=== PATIENT | male | born 1950 | race Caucasian/White ===

== ENCOUNTER 2017-03-14 08:00 | Outpatient (RCR) | payer MEDICARE, OTHER, SELFPAY ==
[2017-02-25 01:28] VITALS: BP 116/67; PULSE 74; RESP 16; TEMP 36.3; BMI 24.4
[2017-02-27 08:15] VITALS: BP 129/75; PULSE 73; RESP 16; TEMP 36.5; BMI 24.4
--- NOTE | 2017-02-27 12:05 | PCM.WC.PN ---
(1) Wound, surgical, nonhealing Status: Acute Current Visit: No Qualifiers: Code(s): T81.89XA - Other complications of procedures, not elsewhere classified, initial encounter (2) Anticoagulant long-term use Status: Chronic Current Visit: No Code(s): Z79.01 - long term (current) use of anticoagulants Type of Wound Date of Service: 02/27/17 Chief Complaint: Follow-up right chest wound open from drain site nonhealing. History of Wound: Mr. Moreira is a 66-year-old who returns to the wound center for right chest wound status post chest tube placement and tube removal. He recently had surgery at the [facility] on the 07 of January due to poor wound healing and per patient he had debridement and suture removal. He is here today for chronic wound care management. He has no active complaints at this time. Reports minimal drainage from the wound site and denies any foul-smelling discharge. He feels well otherwise denies chills, fever, nausea, vomiting or otherwise feeling of well. He is currently on coumadin. Progress of Wound: Improving. No new complaints. - Physical Exam Vital Signs Temp Pulse Resp BP 97.7 F L 73 16 129/75 H 02/27/17 08:15 02/27/17 08:15 02/27/17 08:15 02/27/17 08:15 General: Alert, Oriented x3, Cooperative, No apparent distress HEENT: Atraumatic, Normocephalic Oral: Moist Mucosa Neck: Supple, No JVD Lungs: Normal air movement Cardiovascular: Regular rate Extremities: No cyanosis Wound Measurements and Assessment - Nurse 1 - General Ulcer Measurement Start: 02/27/17 08:15 Freq: Status: Active Protocol: Activity Type Activity Date Activity User E-Sign Co-Sign Detail Recorded Client Recorded Date Recorded By Document 02/27/17 08:15 MW [id number] 02/27/17 08:24 MW 02/27/17 08:15 Wound Center Nurse 1 [Ulcer Assessment Protocol: PRASANNA.WD.LOC] #2- RT SIDE CHEST (PREV CHEST TUBE SITE) -Combined with other wound No -Current Size (cm) - Length 0.2 -Current Size (cm) - Width 1.1 -Current Size (cm) - Depth 0.2 -Total Square Cm 0.22 -Photo Taken Yes -Epithelialization Small 1-33% -Tunneling No -Undermining/Tunneling No -Circular Undermining No -Exudate Amt Small (1-33%) -Exudate Type Serosanguineous -Wound Margin Distinct, Outline Attached -Granulation Amt Medium (34-66%) -Granulation Quality [place] -Slough/Fibrin Yes -Necrosis Amt Small (1-33%) -Necrotic Tissue Type Adherent Slough -Structure Exposed N/A -Texture (Brinda-wound Skin Appearance) Assessed Scarring -Moisture (Brinda-wound Skin Appearance No Abnormality ) Assessed -Color (Brinda-wound Skin Appearance) No Abnormality Assessed -Temperature (Brinda-wound Skin No Abnormality Appearance) (Pt Warm) -Tenderness on Palpation (Brinda-wound No Skin Appearance) -Ulcer Cleansing Rinsed/ Irrigated with Saline -Foul Odor after Cleansing No -Anesthetic Used 5% Lidocaine Gel [Edema Assessment] -Lower Limb Edema Present No WC - Nurse 2 - General Ulcer CM Notes Start: 02/27/17 08:15 Freq: Status: Active Protocol: Activity Type Activity Date Activity User E-Sign Co-Sign Detail Recorded Client Recorded Date Recorded By Document 02/27/17 09:11 DV [id number] 02/27/17 09:15 DV 02/27/17 09:11 Wound Center Nurse 2 [Procedure/Treatment] #2- RT SIDE CHEST (PREV CHEST TUBE SITE) -Time 09:14 -Correct Patient Yes -Correct Side, Site, Position Yes -Correct Procedure Yes -Procedure Performed Yes -Type of Procedure Debridement -Clinical Debridement Subcutaneous -Post Debridement Size (cm) - Length 0.6 -Post Debridement Size (cm) - Width 1.5 -Post Debridement Size (cm) - Depth 0.3 -Total Square Cm 0.90 -Wound/Ulcer Outcome Not Healed -Ulcer Cleansing Rinsed/ Irrigated with Saline -Foul Odor after Cleansing No -Bioengineered Tissue No -Cetacaine [place] No -Bleeding Controlled with Pressure -Treatment Response Procedure Tolerated Well [See Physician Procedure note for Specifics] Pain Scale: 0-10 Numeric [Pain] -Is Patient Pain Free? Yes Musculoskeletal: No Muscle Wasting Neurological: Cranial nerves II-XII grossly intact Debridement Note Post-Debridement Measurements/Treatment WC - Nurse 2 - General Ulcer CM Notes Start: 02/27/17 08:15 Freq: Status: Active Protocol: Activity Type Activity Date Activity User E-Sign Co-Sign Detail Recorded Client Recorded Date Recorded By Document 02/27/17 09:11 DV [id number] 02/27/17 09:15 DV 02/27/17 09:11 Wound Center Nurse 2 #2- RT SIDE CHEST (PREV CHEST TUBE SITE) -Time 09:14 -Correct Patient Yes -Correct Side, Site, Position Yes -Correct Procedure Yes -Procedure Performed Yes -Type of Procedure Debridement -Clinical Debridement Subcutaneous -Post Debridement Size (cm) - Length 0.6 -Post Debridement Size (cm) - Width 1.5 -Post Debridement Size (cm) - Depth 0.3 -Total Square Cm 0.90 -Wound/Ulcer Outcome Not Healed -Ulcer Cleansing Rinsed/ Irrigated with Saline -Foul Odor after Cleansing No -Bioengineered Tissue No -Cetacaine [place] No -Bleeding Controlled with Pressure -Treatment Response Procedure Tolerated Well Pain Scale: 0-10 Numeric Is Patient Pain Free? Yes Type of Debridement: Excisional debridement Anesthesia Used: 5% Lidocaine Gel Depth: in the subcutaneous layer Percentage of wound debrided: 100 Instrument Used: 5mm curette Tissue Removed: Slough Amount of bleeding with debridement: Mild Bleeding Controlled with: Compression and gauze Patient tolerated procedure well Assessment/Plan Assessment: Nonhealing surgical wound right chest status post recent surgery and suture removal. Coumadin therapy Plan: Consistent reduction in wound size. No hyper granulation today. Will DC VAC. Continue Aquacel dressing/packing of wound with Adaptic over top. Continue protein rich diet. Follow up in 1 week. This note was generated with [employer] software. It may contain incorrect words, spelling, and punctuation that were not noted in checking the note before signing.
--- NOTE | 2017-02-27 12:11 | PN.PCM_ITS ---
(1) Wound, surgical, nonhealing Status: Acute Current Visit: No Qualifiers: Code(s): T81.89XA - Other complications of procedures, not elsewhere classified , initial encounter (2) Anticoagulant long-term use Status: Chronic Current Visit: No Code(s): Z79.01 - predatory animal exterminator (current) use of anticoagulants Type of Wound Date of Service: 02/27/17 Chief Complaint: Follow-up right chest wound open from drain site nonhealing. History of Wound: Mr. Moreira is a 66-year-old who returns to the wound center for right chest wound status post chest tube placement and tube removal. He recently had surgery at the [facility] on the 07 of January due to poor wound healing and per patient he had debridement and suture removal. He is here today for chronic wound care management. He has no active complaints at this time. Reports minimal drainage from the wound site and denies any foul-smelling discharge. He feels well otherwise denies chills, fever, nausea, vomiting or otherwise feeling of well. He is currently on coumadin. Progress of Wound: Improving. No new complaints. - Physical Exam Vital Signs Temp Pulse Resp BP 97.7 F L 73 16 129/75 H 02/27/17 08:15 02/27/17 08:15 02/27/17 08:15 02/27/17 08:15 General: Alert, Oriented x3, Cooperative, No apparent distress HEENT: Atraumatic, Normocephalic Oral: Moist Mucosa Neck: Supple, No JVD Lungs: Normal air movement Cardiovascular: Regular rate Extremities: No cyanosis Wound Measurements and Assessment - Nurse 1 - General Ulcer Measurement Start: 02/27/17 08:15 Freq: Status: Active Protocol: Activity Type Activity Date Activity User E-Sign Co-Sign Detail Recorded Client Recorded Date Recorded By Document 02/27/17 08:15 MW [id number] 02/27/17 08:24 MW 02/27/17 08:15 Wound Center Nurse 1 [Ulcer Assessment Protocol: PRASANNA.WD.LOC] #2- RT SIDE CHEST (PREV CHEST TUBE SITE) -Combined with other wound No -Current Size (cm) - Length 0.2 -Current Size (cm) - Width 1.1 -Current Size (cm) - Depth 0.2 -Total Square Cm 0.22 -Photo Taken Yes -Epithelialization Small 1-33% -Tunneling No -Undermining/Tunneling No -Circular Undermining No -Exudate Amt Small (1-33%) -Exudate Type Serosanguineous -Wound Margin Distinct, Outline Attached -Granulation Amt Medium (34-66%) -Granulation Quality [place] -Slough/Fibrin Yes -Necrosis Amt Small (1-33%) -Necrotic Tissue Type Adherent Slough -Structure Exposed N/A -Texture (Brinda-wound Skin Appearance) Assessed Scarring -Moisture (Brinda-wound Skin Appearance No Abnormality ) Assessed -Color (Brinda-wound Skin Appearance) No Abnormality Assessed -Temperature (Brinda-wound Skin No Abnormality Appearance) (Pt Warm) -Tenderness on Palpation (Brinda-wound No Skin Appearance) -Ulcer Cleansing Rinsed/ Irrigated with Saline -Foul Odor after Cleansing No -Anesthetic Used 5% Lidocaine Gel [Edema Assessment] -Lower Limb Edema Present No WC - Nurse 2 - General Ulcer CM Notes Start: 02/27/17 08:15 Freq: Status: Active Protocol: Activity Type Activity Date Activity User E-Sign Co-Sign Detail Recorded Client Recorded Date Recorded By Document 02/27/17 09:11 DV [id number] 02/27/17 09:15 DV 02/27/17 09:11 Wound Center Nurse 2 [Procedure/Treatment] #2- RT SIDE CHEST (PREV CHEST TUBE SITE) -Time 09:14 -Correct Patient Yes -Correct Side, Site, Position Yes -Correct Procedure Yes -Procedure Performed Yes -Type of Procedure Debridement -Clinical Debridement Subcutaneous -Post Debridement Size (cm) - Length 0.6 -Post Debridement Size (cm) - Width 1.5 -Post Debridement Size (cm) - Depth 0.3 -Total Square Cm 0.90 -Wound/Ulcer Outcome Not Healed -Ulcer Cleansing Rinsed/ Irrigated with Saline -Foul Odor after Cleansing No -Bioengineered Tissue No -Cetacaine [place] No -Bleeding Controlled with Pressure -Treatment Response Procedure Tolerated Well [See Physician Procedure note for Specifics] Pain Scale: 0-10 Numeric [Pain] -Is Patient Pain Free? Yes Musculoskeletal: No Muscle Wasting Neurological: Cranial nerves II-XII grossly intact Debridement Note Post-Debridement Measurements/Treatment WC - Nurse 2 - General Ulcer CM Notes Start: 02/27/17 08:15 Freq: Status: Active Protocol: Activity Type Activity Date Activity User E-Sign Co-Sign Detail Recorded Client Recorded Date Recorded By Document 02/27/17 09:11 DV [id number] 02/27/17 09:15 DV 02/27/17 09:11 Wound Center Nurse 2 #2- RT SIDE CHEST (PREV CHEST TUBE SITE) -Time 09:14 -Correct Patient Yes -Correct Side, Site, Position Yes -Correct Procedure Yes -Procedure Performed Yes -Type of Procedure Debridement -Clinical Debridement Subcutaneous -Post Debridement Size (cm) - Length 0.6 -Post Debridement Size (cm) - Width 1.5 -Post Debridement Size (cm) - Depth 0.3 -Total Square Cm 0.90 -Wound/Ulcer Outcome Not Healed -Ulcer Cleansing Rinsed/ Irrigated with Saline -Foul Odor after Cleansing No -Bioengineered Tissue No -Cetacaine [place] No -Bleeding Controlled with Pressure -Treatment Response Procedure Tolerated Well Pain Scale: 0-10 Numeric Is Patient Pain Free? Yes Type of Debridement: Excisional debridement Anesthesia Used: 5% Lidocaine Gel Depth: in the subcutaneous layer Percentage of wound debrided: 100 Instrument Used: 5mm curette Tissue Removed: Slough Amount of bleeding with debridement: Mild Bleeding Controlled with: Compression and gauze Patient tolerated procedure well Assessment/Plan Assessment: Nonhealing surgical wound right chest status post recent surgery and suture removal. Coumadin therapy Plan: Consistent reduction in wound size. No hyper granulation today. Will DC VAC. Continue Aquacel dressing/packing of wound with Adaptic over top. Continue protein rich diet. Follow up in 1 week. This note was generated with [employer] software. It may contain incorrect words, spelling, and punctuation that were not noted in checking the note before signing.
[2017-03-06 08:23] VITALS: BP 104/67; PULSE 68; RESP 18; TEMP 37.1; BMI 24.4
--- NOTE | 2017-03-06 08:53 | PN.PCM_ITS ---
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 History of Wound: Mr. Moreira is a 66-year-old who returns to the wound center for right chest wound status post chest tube placement and tube removal. He recently had surgery at the [facility] on the 07 of January due to poor wound healing and per patient he had debridement and suture removal. He is here today for chronic wound care management. He has no active complaints at this time. Reports minimal drainage from the wound site and denies any foul-smelling discharge. He feels well otherwise denies chills, fever, nausea, vomiting or otherwise feeling of well. He is currently on coumadin. Progress of Wound: Improving. No new complaints. - Physical Exam Vital Signs Temp Pulse Resp BP 98.8 F 68 18 104/67 03/06/17 08:23 03/06/17 08:23 03/06/17 08:23 03/06/17 08:23 General: Alert, Oriented x3, Cooperative, No apparent distress HEENT: Atraumatic, Normocephalic Oral: Moist Mucosa Neck: Supple Lungs: Normal air movement Cardiovascular: Regular rate Extremities: No cyanosis Wound Measurements and Assessment PRASANNA - Nurse 1 - General Ulcer Measurement Start: 02/27/17 08:15 Freq: Status: Active Protocol: Activity Type Activity Date Activity User E-Sign Co-Sign Detail Recorded Client Recorded Date Recorded By Document 03/06/17 08:23 RB [id number] 03/06/17 08:27 RB 03/06/17 08:23 Wound Center Nurse 1 [Ulcer Assessment Protocol: PRASANNA.WD.LOC] #2- RT SIDE CHEST (PREV CHEST TUBE SITE) -Combined with other wound No -Current Size (cm) - Length 0.3 -Current Size (cm) - Width 0.6 -Current Size (cm) - Depth 0.1 -Total Square Cm 0.18 -Photo Taken No -Tunneling No -Undermining/Tunneling No -Circular Undermining No -Classification - Thickness Full Thickness without Exposed Support Structure -Exudate Amt Small (1-33%) -Exudate Type Serosanguineous -Wound Margin Distinct, Outline Attached -Granulation Amt Medium (34-66%) -Granulation Quality [place] -Slough/Fibrin Yes -Necrosis Amt Small (1-33%) -Necrotic Tissue Type Adherent Slough -Structure Exposed N/A -Texture (Brinda-wound Skin Appearance) Assessed -Moisture (Brinda-wound Skin Appearance Assessed ) -Color (Brinda-wound Skin Appearance) Assessed -Temperature (Brinda-wound Skin No Abnormality Appearance) (Pt Warm) -Tenderness on Palpation (Brinda-wound No Skin Appearance) -Ulcer Cleansing Rinsed/ Irrigated with Saline -Foul Odor after Cleansing No -Anesthetic Used 4% Lidocaine Solution WC - Nurse 2 - General Ulcer CM Notes Start: 02/27/17 08:15 Freq: Status: Active Protocol: Activity Type Activity Date Activity User E-Sign Co-Sign Detail Recorded Client Recorded Date Recorded By Document 03/06/17 08:38 DV [id number] 03/06/17 08:45 DV 03/06/17 08:38 Wound Center Nurse 2 [Procedure/Treatment] -Time 08:42 -Correct Patient Yes -Correct Side, Site, Position Yes -Correct Procedure Yes -Procedure Performed Yes -Type of Procedure Debridement -Clinical Debridement Subcutaneous -Post Debridement Size (cm) - Length 0.4 -Post Debridement Size (cm) - Width 1.1 -Post Debridement Size (cm) - Depth 0.1 -Total Square Cm 0.44 -Wound/Ulcer Outcome Not Healed -Ulcer Cleansing Rinsed/ Irrigated with Saline -Foul Odor after Cleansing No [See Physician Procedure note for Specifics] Pain Scale: 0-10 Numeric [Pain] -Is Patient Pain Free? Yes Musculoskeletal: No Muscle Wasting Neurological: Cranial nerves II-XII grossly intact Psych/Mental Status: Normal Affect Debridement Note Post-Debridement Measurements/Treatment WC - Nurse 2 - General Ulcer CM Notes Start: 02/27/17 08:15 Freq: Status: Active Protocol: Activity Type Activity Date Activity User E-Sign Co-Sign Detail Recorded Client Recorded Date Recorded By Document 02/27/17 09:11 DV [id number] 02/27/17 09:15 DV Document 03/06/17 08:38 DV [id number] 03/06/17 08:45 DV 02/27/17 03/06/17 09:11 08:38 Wound Center Nurse 2 #2- RT SIDE CHEST (PREV CHEST TUBE SITE) -Time 09:14 08:42 -Correct Patient Yes Yes -Correct Side, Site, Position Yes Yes -Correct Procedure Yes Yes -Procedure Performed Yes Yes -Type of Procedure Debridement Debridement -Clinical Debridement Subcutaneous Subcutaneous -Post Debridement Size (cm) - Length 0.6 0.4 -Post Debridement Size (cm) - Width 1.5 1.1 -Post Debridement Size (cm) - Depth 0.3 0.1 -Total Square Cm 0.90 0.44 -Wound/Ulcer Outcome Not Healed Not Healed -Ulcer Cleansing Rinsed/ Rinsed/ Irrigated with Irrigated with Saline Saline -Foul Odor after Cleansing No No -Bioengineered Tissue No -Cetacaine [place] No -Bleeding Controlled with Pressure -Treatment Response Procedure Tolerated Well Pain Scale: 0-10 Numeric Is Patient Pain Free? Yes Yes Type of Debridement: Excisional debridement Anesthesia Used: 4% Lidocaine Solution Depth: Down to and including healthy tissue, in the subcutaneous layer Percentage of wound debrided: 100 Instrument Used: 3mm curette Tissue Removed: Slough Amount of bleeding with debridement: Mild Bleeding Controlled with: Pressure Patient tolerated procedure well Assessment/Plan Assessment: Nonhealing surgical wound right chest status post recent surgery and suture removal. Coumadin therapy Plan: Mr Clemente has made consistent progress. They have noted mild crusting during dressing change however no significant discharge. No other signs of infection. Very minimal undermining and no tunelling appreciated. Wound debridement done as documented. Continue Aquacel dressing/packing of wound with Adaptic over top. Continue protein rich diet. Follow up in 1 week. This note was generated with [employer] software. It may contain incorrect words, spelling, and punctuation that were not noted in checking the note before signing.
[2017-03-14 08:11] VITALS: BP 149/61; PULSE 72; RESP 18; TEMP 36.6; BMI 24.4
--- NOTE | 2017-03-14 08:46 | PCM.WC.PN ---
(1) Wound, surgical, nonhealing Status: Acute Current Visit: No Qualifiers: Code(s): T81.89XA - Other complications of procedures, not elsewhere classified, initial encounter (2) Anticoagulant long-term use Status: Chronic Current Visit: No Code(s): Z79.01 - watermaster (current) use of anticoagulants Type of Wound Date of Service: 03/14/17 Chief Complaint: Follow-up right chest wound open from drain site nonhealing. History of Wound: Mr. Moreira is a 66-year-old who returns to the wound center for right chest wound status post chest tube placement and tube removal. He recently had surgery at the [facility] on the 07 of January due to poor wound healing and per patient he had debridement and suture removal. He is here today for chronic wound care management. He has no active complaints at this time. Reports minimal drainage from the wound site and denies any foul-smelling discharge. He feels well otherwise denies chills, fever, nausea, vomiting or otherwise feeling of well. He is currently on coumadin. Progress of Wound: Healed. - Physical Exam Vital Signs Temp Pulse Resp BP 98 F 72 18 149/61 H 03/14/17 08:11 03/14/17 08:11 03/14/17 08:11 03/14/17 08:11 General: Alert, Oriented x3, Cooperative, No apparent distress HEENT: Atraumatic, Normocephalic Oral: Moist Mucosa Neck: Supple Lungs: Normal air movement Cardiovascular: Regular rate Abdomen: Soft Extremities: No clubbing, No cyanosis Wound Measurements and Assessment PRASANNA - Nurse 1 - General Ulcer Measurement Start: 02/27/17 08:15 Freq: Status: Active Protocol: Activity Type Activity Date Activity User E-Sign Co-Sign Detail Recorded Client Recorded Date Recorded By Document 03/14/17 08:11 DL [id number] 03/14/17 08:18 DL 03/14/17 08:11 Wound Center Nurse 1 [Ulcer Assessment Protocol: PRASANNA.WD.LOC] #2- RT SIDE CHEST (PREV CHEST TUBE SITE) -Current Size (cm) - Length 0 -Current Size (cm) - Width 0 -Current Size (cm) - Depth 0 -Total Square Cm 0 -Photo Taken Yes -Exudate Amt None Present (0 %) -Wound Margin Flat & Intact -Granulation Amt Large (67-100%) -Granulation Quality [place] -Necrosis Amt None Present (0 %) -Structure Exposed N/A -Texture (Brinda-wound Skin Appearance) Scarring -Moisture (Brinda-wound Skin Appearance No Abnormality ) -Color (Brinda-wound Skin Appearance) No Abnormality -Temperature (Brinda-wound Skin No Abnormality Appearance) (Pt Warm) -Ulcer Cleansing Rinsed/ Irrigated with Saline -Foul Odor after Cleansing No Musculoskeletal: No Muscle Wasting Neurological: Cranial nerves II-XII grossly intact Psych/Mental Status: Normal Affect Debridement Note Post-Debridement Measurements/Treatment WC - Nurse 2 - General Ulcer CM Notes Start: 02/27/17 08:15 Freq: Status: Active Protocol: Activity Type Activity Date Activity User E-Sign Co-Sign Detail Recorded Client Recorded Date Recorded By Document 02/27/17 09:11 DV [id number] 02/27/17 09:15 DV Document 03/06/17 08:38 DV [id number] 03/06/17 08:45 DV 02/27/17 03/06/17 09:11 08:38 Wound Center Nurse 2 #2- RT SIDE CHEST (PREV CHEST TUBE SITE) -Time 09:14 08:42 -Correct Patient Yes Yes -Correct Side, Site, Position Yes Yes -Correct Procedure Yes Yes -Procedure Performed Yes Yes -Type of Procedure Debridement Debridement -Clinical Debridement Subcutaneous Subcutaneous -Post Debridement Size (cm) - Length 0.6 0.4 -Post Debridement Size (cm) - Width 1.5 1.1 -Post Debridement Size (cm) - Depth 0.3 0.1 -Total Square Cm 0.90 0.44 -Wound/Ulcer Outcome Not Healed Not Healed -Ulcer Cleansing Rinsed/ Rinsed/ Irrigated with Irrigated with Saline Saline -Foul Odor after Cleansing No No -Bioengineered Tissue No -Cetacaine [place] No -Bleeding Controlled with Pressure -Treatment Response Procedure Tolerated Well Pain Scale: 0-10 Numeric Is Patient Pain Free? Yes Yes No debridement was completed today Assessment/Plan Assessment: Nonhealing surgical wound right chest status post recent surgery and suture removal.- Healed. Coumadin therapy Plan: Healed. Advised to wear hypoallergenic and less irritant clothings over the area. Moisturize skin adequately. Follow up as needed. Discharged from the wound center. This note was generated with [employer] software. It may contain incorrect words, spelling, and punctuation that were not noted in checking the note before signing.
--- NOTE | 2017-03-14 08:49 | PN.PCM_ITS ---
(1) Wound, surgical, nonhealing Status: Acute Current Visit: No Qualifiers: Code(s): T81.89XA - Other complications of procedures, not elsewhere classified , initial encounter (2) Anticoagulant long-term use Status: Chronic Current Visit: No Code(s): Z79.01 - group home (current) use of anticoagulants Type of Wound Date of Service: 03/14/17 Chief Complaint: Follow-up right chest wound open from drain site nonhealing. History of Wound: Mr. Moreira is a 66-year-old who returns to the wound center for right chest wound status post chest tube placement and tube removal. He recently had surgery at the [facility] on the 07 of January due to poor wound healing and per patient he had debridement and suture removal. He is here today for chronic wound care management. He has no active complaints at this time. Reports minimal drainage from the wound site and denies any foul-smelling discharge. He feels well otherwise denies chills, fever, nausea, vomiting or otherwise feeling of well. He is currently on coumadin. Progress of Wound: Healed. - Physical Exam Vital Signs Temp Pulse Resp BP 98 F 72 18 149/61 H 03/14/17 08:11 03/14/17 08:11 03/14/17 08:11 03/14/17 08:11 General: Alert, Oriented x3, Cooperative, No apparent distress HEENT: Atraumatic, Normocephalic Oral: Moist Mucosa Neck: Supple Lungs: Normal air movement Cardiovascular: Regular rate Abdomen: Soft Extremities: No clubbing, No cyanosis Wound Measurements and Assessment PRASANNA - Nurse 1 - General Ulcer Measurement Start: 02/27/17 08:15 Freq: Status: Active Protocol: Activity Type Activity Date Activity User E-Sign Co-Sign Detail Recorded Client Recorded Date Recorded By Document 03/14/17 08:11 DL [id number] 03/14/17 08:18 DL 03/14/17 08:11 Wound Center Nurse 1 [Ulcer Assessment Protocol: PRASANNA.WD.LOC] #2- RT SIDE CHEST (PREV CHEST TUBE SITE) -Current Size (cm) - Length 0 -Current Size (cm) - Width 0 -Current Size (cm) - Depth 0 -Total Square Cm 0 -Photo Taken Yes -Exudate Amt None Present (0 %) -Wound Margin Flat & Intact -Granulation Amt Large (67-100%) -Granulation Quality [place] -Necrosis Amt None Present (0 %) -Structure Exposed N/A -Texture (Brinda-wound Skin Appearance) Scarring -Moisture (Brinda-wound Skin Appearance No Abnormality ) -Color (Brinda-wound Skin Appearance) No Abnormality -Temperature (Brinda-wound Skin No Abnormality Appearance) (Pt Warm) -Ulcer Cleansing Rinsed/ Irrigated with Saline -Foul Odor after Cleansing No Musculoskeletal: No Muscle Wasting Neurological: Cranial nerves II-XII grossly intact Psych/Mental Status: Normal Affect Debridement Note Post-Debridement Measurements/Treatment WC - Nurse 2 - General Ulcer CM Notes Start: 02/27/17 08:15 Freq: Status: Active Protocol: Activity Type Activity Date Activity User E-Sign Co-Sign Detail Recorded Client Recorded Date Recorded By Document 02/27/17 09:11 DV [id number] 02/27/17 09:15 DV Document 03/06/17 08:38 DV [id number] 03/06/17 08:45 DV 02/27/17 03/06/17 09:11 08:38 Wound Center Nurse 2 #2- RT SIDE CHEST (PREV CHEST TUBE SITE) -Time 09:14 08:42 -Correct Patient Yes Yes -Correct Side, Site, Position Yes Yes -Correct Procedure Yes Yes -Procedure Performed Yes Yes -Type of Procedure Debridement Debridement -Clinical Debridement Subcutaneous Subcutaneous -Post Debridement Size (cm) - Length 0.6 0.4 -Post Debridement Size (cm) - Width 1.5 1.1 -Post Debridement Size (cm) - Depth 0.3 0.1 -Total Square Cm 0.90 0.44 -Wound/Ulcer Outcome Not Healed Not Healed -Ulcer Cleansing Rinsed/ Rinsed/ Irrigated with Irrigated with Saline Saline -Foul Odor after Cleansing No No -Bioengineered Tissue No -Cetacaine [place] No -Bleeding Controlled with Pressure -Treatment Response Procedure Tolerated Well Pain Scale: 0-10 Numeric Is Patient Pain Free? Yes Yes No debridement was completed today Assessment/Plan Assessment: Nonhealing surgical wound right chest status post recent surgery and suture removal.- Healed. Coumadin therapy Plan: Healed. Advised to wear hypoallergenic and less irritant clothings over the area. Moisturize skin adequately. Follow up as needed. Discharged from the wound center. This note was generated with [email or web address] software. It may contain incorrect words, spelling, and punctuation that were not noted in checking the note before signing.
== END 2017-03-27 23:59 ==
LOC: WC 08:00
PROVIDERS: Family Provider Family Medicine; PCP Family Medicine; Visit Provider Internal Medicine
DX: T81.89XA Other complications of procedures, not elsewhere classified, initial encounter (principal); Y83.8 Other surgical procedures as the cause of abnormal reaction of the patient, or of later complication, without mention of misadventure at the time of the procedure; Z86.19 Personal history of other infectious and parasitic diseases; Z79.01 Long term (current) use of anticoagulants; Z98.890 Other specified postprocedural states
CPT/HCPCS: 11042; 99213; G0463

== ENCOUNTER → 2018-12-10 14:39 | Outpatient (CLI) | payer MEDICARE, OTHER, SELFPAY ==
[2018-12-10 13:54] VITALS: BMI 24.8
--- NOTE | 2018-12-10 14:43 | RAD_ITS ---
STUDY: X-RAY CHEST REASON FOR EXAM: Male, 68 years old. Pleural effusion TECHNIQUE: Frontal and lateral views COMPARISON: September 12, 2016 FINDINGS: Stable sternotomy wires. The lungs are not fully expanded. Elevated right hemidiaphragm with basilar atelectasis. Mild effusion cannot be excluded. Normal size heart. Stable prosthetic cardiac valve. Normal mediastinum and kavin. Normal visualized pulmonary arteries. Normal visualized aortic arch and descending thoracic aorta. Degenerative changes of the thoracic spine. Mild wedge compression of mid thoracic vertebral segments. Normal visualized ribs, clavicles, and shoulders. There is no demonstrated abnormality of the visualized soft tissue structures of the upper abdomen. RAD/Chest PA and Lateral IMPRESSION: Elevated right hemidiaphragm with basilar atelectasis. Mild right effusion cannot be excluded. Electronically Signed: Lj Taylor DO at 20:08 EDT Tel [phone], Service support ,
== END ==
PROVIDERS: Family Provider Family Medicine; PCP Family Medicine; Referring Provider Internal Medicine Cardiovascular Disease; Visit Provider Internal Medicine Cardiovascular Disease
DX: J90 Pleural effusion, not elsewhere classified (principal)
CPT/HCPCS: 71046

== ENCOUNTER → 2019-01-06 07:56 | Outpatient (CLI) | payer MEDICARE, OTHER, SELFPAY ==
[2018-12-10 13:54] VITALS: BMI 24.8
--- NOTE | 2019-01-06 07:57 | ECHOD_ITS ---
Reason For Study: Murmur Procedure This was a 2D Doppler, Color Flow transthoracic echocardiogram. The exam was of adequate technical quality. Exam performed in department. Left Ventricle Normal LV size. Mild concentric left ventricular hypertrophy. Segmental dysfunction with preserved ejection fraction (see wall motion). The estimated ejection fraction is 60 %. Mid-inferoseptal : Mildly hypokinetic. Mid-anteroseptal : Mildly hypokinetic. Septal [place] : Mildly hypokinetic. Right Ventricle Normal RV size. Normal systolic function. Atria The left atrium is mildly enlarged. Normal right atrium. No doppler evidence for ASD. Mitral Valve Stable appearing bioprosthetic mitral valve apparatus. MIld (1+) transvalvular insufficiency of the mitral valve. Mild to Moderate perivalvular insufficiency of the mitral valve. Tricuspid Valve Normal tricuspid valve. Mild tricuspid valve insufficiency. Right ventricular systolic pressure estimated to be 42 mmHg. Aortic Valve Trisinus/trileaflet aortic valve. Normal aortic valve. Pulmonic Valve The pulmonic valve is not well visualized. Great Vessels Borderline enlarged aortic root. Pericardium/Pleural No pericardial effusion. MMode/2D Measurements & Calculations LVIDd: 5.4 cm IVSd: 1.4 cm Ao root diam: 4.0 cm LVIDs: 3.5 cm LVPWd: 1.5 cm LA dimension: 5.4 cm RVDd: 3.9 cm FS: 36.0 % LAV(MOD-bp): 92.3 ml LVAd ap4: 42.6 cm2 SV(MOD-sp4): 92.7 ml LAV(MOD-bp) Indexed: 46.4 ml/m2 EDV(MOD-sp4): 166.5 ml LAV(MOD-sp2): 89.3 ml EDV(sp4-el): 182.0 ml LAV(MOD-sp4): 80.7 ml LVAs ap4: 25.9 cm2 ESV(MOD-sp4): 73.8 ml ESV(sp4-el): 79.2 ml EF(MOD-sp4): 55.6 % EF(sp4-el): 56.5 % SV(sp4-el): 102.8 ml LA A4 area: 23.2 cm2 RA A4 area: 10.4 cm2 Time Measurements MV dec time: 0.43 sec Doppler Measurements & Calculations MV E max jorge: 169.4 cm/sec Lat Peak E' Jorge: 6.6 cm/sec Med Peak E' Jorge: 5.6 cm/sec MV A max jorge: 121.2 cm/sec E/E' lat: 25.7 E/E' med: 30.2 MV E/A: 1.4 MV V2 max: 223.6 cm/sec MV P1/2t max jorge: 224.7 cm/sec Ao V2 max: 93.8 cm/sec MV max P.0 mmHg MV P1/2t: 98.0 msec Ao max P.5 mmHg MV V2 mean: 121.8 cm/sec MV mean P.0 mmHg MV dec slope: 671.5 cm/sec2 MV V2 VTI: 68.9 cm MVA(P1/2t): 2.2 cm2 LV V1 max: 77.6 cm/sec MR max jorge: 462.8 cm/sec PA V2 max: 91.0 cm/sec LV V1 max P.4 mmHg MR max P.7 mmHg MR mean jorge: 381.8 cm/sec MR mean P.6 mmHg MR VTI: 161.8 cm TR max jorge: 311.1 cm/sec TR max P.7 mmHg Interpretation Summary Segmental dysfunction with preserved ejection fraction (see wall motion). The estimated ejection fraction is 60 %. Mild concentric left ventricular hypertrophy. The left atrium is mildly enlarged. Stable appearing bioprosthetic mitral valve apparatus. MIld (1+) transvalvular insufficiency of the mitral valve. Mild to Moderate perivalvular insufficiency of the mitral valve. Mild tricuspid valve insufficiency. Borderline enlarged aortic root. Right ventricular systolic pressure estimated to be 42 mmHg. Transmitral diastolic flow velocities suggest diastolic dysfunction (pseudonormal pattern). Ordering Physician: Ramesh Bailey Referring Physician: Mitchell Delcid Performed By: Dinesh Fu RCS
== END ==
PROVIDERS: Family Provider Family Medicine; PCP Family Medicine; Referring Provider Internal Medicine Cardiovascular Disease; Visit Provider Internal Medicine Cardiovascular Disease
DX: I48.91 Unspecified atrial fibrillation (principal); I48.92 Unspecified atrial flutter; E78.5 Hyperlipidemia, unspecified; I10 Essential (primary) hypertension; J90 Pleural effusion, not elsewhere classified; Z79.01 Long term (current) use of anticoagulants; Z95.3 Presence of xenogenic heart valve
CPT/HCPCS: 93306

== ENCOUNTER → 2020-03-02 07:51 | Outpatient (CLI) | payer MEDICARE, OTHER, SELFPAY ==
[2020-02-15 13:27] VITALS: BMI 24.2
--- NOTE | 2020-03-02 07:53 | ECHOD_ITS ---
Reason For Study: VALVE REPLACEMENT EVAL Procedure This was a 2D Doppler, Color Flow transthoracic echocardiogram. The exam was of adequate technical quality. Exam performed in department. Left Ventricle Normal LV size. Segmental dysfunction with preserved ejection fraction (see wall motion). The estimated ejection fraction is 55 %. Mid-inferoseptal : Hypokinetic. Mid-anteroseptal : Hypokinetic. Right Ventricle Normal RV size. Normal systolic function. Atria The left atrium is mildly enlarged. Normal right atrium. No doppler evidence for ASD. Mitral Valve Stable appearing bioprosthetic mitral valve apparatus. MIld (1+) transvalvular insufficiency of the mitral valve. Mild to moderate eccentric perivalvular mitral valve insufficiency. Tricuspid Valve Normal tricuspid valve. Mild tricuspid valve insufficiency. Right ventricular systolic pressure estimated to be 43 mmHg. Aortic Valve Trisinus/trileaflet aortic valve. Normal aortic valve. Trivial aortic valve insufficiency. Pulmonic Valve The pulmonic valve is not well visualized. Trivial pulmonic valve insufficiency. Great Vessels Borderline to mildly enlarged aortic root. Pericardium/Pleural No pericardial effusion. MMode/2D Measurements & Calculations LVIDd: 6.0 cm IVSd: 1.2 cm LVOT diam: 2.0 cm LVIDs: 4.3 cm LVPWd: 1.1 cm LVOT area: 3.1 cm2 RVDd: 3.8 cm FS: 28.7 % Ao root diam: 3.8 cm LAV(MOD-bp): 134.6 ml LVAd ap4: 48.3 cm2 LAV(MOD-bp) Indexed: 67.9 ml/m2 EDV(MOD-sp4): 212.4 ml LAV(MOD-sp2): 161.1 ml EDV(sp4-el): 226.3 ml LAV(MOD-sp4): 109.7 ml LVAs ap4: 30.6 cm2 ESV(MOD-sp4): 100.0 ml ESV(sp4-el): 104.8 ml EF(MOD-sp4): 52.9 % EF(sp4-el): 53.7 % SV(MOD-sp4): 112.4 ml SV(sp4-el): 121.6 ml LA A4 area: 30.6 cm2 LA dimension(2D): 5.4 cm RA A4 area: 12.6 cm2 Time Measurements MV dec time: 0.41 sec Doppler Measurements & Calculations MV E max jorge: 199.3 cm/sec Lat Peak E' Jorge: 13.8 cm/sec Med Peak E' Jorge: 5.0 cm/sec MV A max jorge: 91.3 cm/sec E/E' lat: 14.5 E/E' med: 39.5 MV E/A: 2.2 MV P1/2t max jorge: 220.9 cm/sec Ao V2 max: 114.3 cm/sec LV V1 max: 83.2 cm/sec MV P1/2t: 133.8 msec Ao max P.2 mmHg LV V1 max P.8 mmHg Ao V2 mean: 83.2 cm/sec LV V1 mean P.5 mmHg MV dec slope: 483.6 cm/sec2 Ao mean P.0 mmHg LV V1 mean: 58.0 cm/sec MVA(P1/2t): 1.6 cm2 Ao V2 VTI: 27.4 cm LV V1 VTI: 19.5 cm DEMARCO(I,D): 2.2 cm2 DEMARCO(V,D): 2.3 cm2 SV(LVOT): 61.0 ml PA V2 max: 89.6 cm/sec PI end-d jorge: 153.0 cm/sec TR max jorge: 316.6 cm/sec TR max P.1 mmHg Interpretation Summary Segmental dysfunction with preserved ejection fraction (see wall motion). The estimated ejection fraction is 55 %. The left atrium is mildly enlarged. Stable appearing bioprosthetic mitral valve apparatus. MIld (1+) transvalvular insufficiency of the mitral valve. Mild to moderate eccentric perivalvular mitral valve insufficiency. Mild tricuspid valve insufficiency. Trivial aortic valve insufficiency. Trivial pulmonic valve insufficiency. Borderline to mildly enlarged aortic root. Right ventricular systolic pressure estimated to be 43 mmHg. Transmitral diastolic flow velocities suggest diastolic dysfunction (pseudonormal pattern). Ordering Physician: Ramesh Bailey Referring Physician: LISA LOWERY Performed By: Chani Christianson RDCS
== END ==
PROVIDERS: PCP Family Medicine; Referring Provider Internal Medicine Cardiovascular Disease; Visit Provider Internal Medicine Cardiovascular Disease
DX: Z95.3 Presence of xenogenic heart valve (principal)
CPT/HCPCS: 93306

== ENCOUNTER 2021-04-04 07:41 | Outpatient (CLI) | payer MEDICARE, OTHER, SELFPAY ==
--- NOTE | 2021-04-04 07:44 | ECHOD_ITS ---
Reason For Study: VALVE REPLACEMENT EVAL Procedure This was a 2D Doppler, Color Flow transthoracic echocardiogram. The exam was of adequate technical quality. Exam performed in department. Left Ventricle Normal LV size. Segmental dysfunction with preserved ejection fraction (see wall motion). The estimated ejection fraction is 55 %. Post operative septal motion. Mid-inferoseptal : Hypokinetic. Mid-anteroseptal : Hypokinetic. Right Ventricle Normal RV size. Normal systolic function. Atria The left atrium is mildly enlarged. Normal right atrium. No doppler evidence for ASD. Mitral Valve Stable appearing bioprosthetic mitral valve apparatus. MIld (1+) transvalvular insufficiency of the mitral valve. Mild perivalvular insufficiency of the mitral valve. Tricuspid Valve Normal tricuspid valve. Mild tricuspid valve insufficiency. Right ventricular systolic pressure estimated to be 38 mmHg. Aortic Valve Trisinus/trileaflet aortic valve. Normal aortic valve. Trivial aortic valve insufficiency. Pulmonic Valve The pulmonic valve is not well visualized. Trivial pulmonic valve insufficiency. Great Vessels Mildly dilated aortic root. Pericardium/Pleural No pericardial effusion. MMode/2D Measurements & Calculations LVIDd: 5.6 cm IVSd: 1.0 cm LVOT diam: 2.2 cm LVIDs: 4.0 cm LVPWd: 1.0 cm LVOT area: 3.9 cm2 RVDd: 3.7 cm FS: 28.7 % Ao root diam: 4.0 cm LAV(MOD-bp): 89.9 ml LVAd ap4: 49.9 cm2 LAV(MOD-bp) Indexed: 45.1 ml/m2 LVLd ap4: 9.2 cm LAV(MOD-sp2): 85.7 ml EDV(MOD-sp4): 215.0 ml LAV(MOD-sp4): 89.2 ml EDV(sp4-el): 229.1 ml LVAs ap4: 32.6 cm2 LVLs ap4: 8.5 cm ESV(MOD-sp4): 102.2 ml ESV(sp4-el): 107.0 ml EF(MOD-sp4): 52.4 % EF(sp4-el): 53.3 % SV(MOD-sp4): 112.7 ml SV(sp4-el): 122.1 ml LA A4 area: 27.3 cm2 LA dimension(2D): 5.5 cm RA A4 area: 21.5 cm2 Time Measurements MV dec time: 0.45 sec Doppler Measurements & Calculations MV E max jorge: 187.2 cm/sec Lat Peak E' Jorge: 6.0 cm/sec Med Peak E' Jorge: 8.8 cm/sec MV A max jorge: 81.0 cm/sec E/E' lat: 31.1 E/E' med: 21.3 MV E/A: 2.3 MV V2 max: 220.2 cm/sec MV P1/2t max jorge: 213.3 cm/sec Ao V2 max: 122.4 cm/sec MV max P.5 mmHg MV P1/2t: 129.4 msec Ao max P.0 mmHg MV V2 mean: 109.2 cm/sec MV mean P.9 mmHg MV dec slope: 482.9 cm/sec2 DEMARCO(V,D): 2.5 cm2 MV V2 VTI: 70.3 cm MVA(P1/2t): 1.7 cm2 LV V1 max: 76.0 cm/sec PA V2 max: 85.5 cm/sec TR max jorge: 294.0 cm/sec LV V1 max P.3 mmHg TR max P.6 mmHg ECHO/Echo Complete Interpretation Summary Segmental dysfunction with preserved ejection fraction (see wall motion). The estimated ejection fraction is 55 %. The left atrium is mildly enlarged. Post operative septal motion. Stable appearing bioprosthetic mitral valve apparatus. MIld (1+) transvalvular insufficiency of the mitral valve. Mild perivalvular insufficiency of the mitral valve. Mild tricuspid valve insufficiency. Trivial aortic valve insufficiency. Trivial pulmonic valve insufficiency. Mildly dilated aortic root. Right ventricular systolic pressure estimated to be 38 mmHg. Transmitral diastolic flow velocities suggest diastolic dysfunction (pseudonorm al pattern). Ordering Physician: Ramesh Bailey Referring Physician: BAM MORRISON Performed By: Chani Christianson RDCS
== END 2021-04-04 23:59 | disposition home or self-care (01) ==
LOC: CVS 07:44
PROVIDERS: PCP Physician Assistant; Referring Provider Internal Medicine Cardiovascular Disease; Visit Provider Internal Medicine Cardiovascular Disease
DX: Z95.3 Presence of xenogenic heart valve (principal)
CPT/HCPCS: 93306

== ENCOUNTER → 2022-03-14 | Outpatient (CLI) | payer MEDICARE, OTHER, SELFPAY ==
--- NOTE | 2022-03-14 07:59 | ECHOD_ITS ---
Reason For Study: VALVE REPLACEMENT EVAL Procedure This was a 2D Doppler, Color Flow transthoracic echocardiogram. Exam performed in department. Left Ventricle Borderline enlarged left ventricle. Left ventricular systolic function is normal. The estimated ejection fraction is 55 %. Post operative septal motion. Stage 2 diastolic dysfunction. Right Ventricle Normal RV size. Normal systolic function. Atria The left atrium is mildly enlarged. Normal right atrium. No doppler evidence for ASD. Bubble contrast study negative for right to left interatrial shunt. Mitral Valve Stable appearing bioprosthetic mitral valve apparatus. MIld (1+) transvalvular insufficiency of the mitral valve. Mild perivalvular insufficiency of the mitral valve. Tricuspid Valve Normal tricuspid valve. Mild tricuspid valve insufficiency. Right ventricular systolic pressure estimated to be 41 mmHg. Aortic Valve Trisinus/trileaflet aortic valve. Normal aortic valve. Trivial aortic valve insufficiency. Pulmonic Valve The pulmonic valve is not well visualized. Trivial pulmonic valve insufficiency. Great Vessels Mildly dilated aortic root. Pericardium/Pleural No pericardial effusion. Medication 22 gauge I.V. with prn adaptor inserted into right arm. Performed a rapid injection of agitated mix of 9 cc saline and 1cc air to assess for atrial septal defect. MMode/2D Measurements & Calculations LVIDd: 5.7 cm IVSd: 1.0 cm Ao root diam: 4.2 cm LVIDs: 4.4 cm LVPWd: 0.94 cm RVDd: 3.9 cm FS: 22.8 % LAV(MOD-bp): 125.0 ml LVAd ap4: 47.1 cm2 SV(MOD-sp4): 90.2 ml LAV(MOD-bp) Indexed: 63.0 ml/m2 LVLd ap4: 9.1 cm LAV(MOD-sp2): 78.8 ml EDV(MOD-sp4): 194.3 ml LAV(MOD-sp4): 171.4 ml EDV(sp4-el): 207.4 ml LVAs ap4: 31.0 cm2 LVLs ap4: 7.4 cm ESV(MOD-sp4): 104.1 ml ESV(sp4-el): 109.6 ml EF(MOD-sp4): 46.4 % EF(sp4-el): 47.2 % SV(sp4-el): 97.8 ml LA A4 area: 38.5 cm2 LA dimension(2D): 6.0 cm RA A4 area: 17.4 cm2 Time Measurements MV dec time: 0.19 sec Doppler Measurements & Calculations MV E max jorge: 176.6 cm/sec Lat Peak E' Jorge: 7.3 cm/sec Med Peak E' Jorge: 3.7 cm/sec MV A max jorge: 130.5 cm/sec E/E' lat: 24.4 E/E' med: 47.2 MV E/A: 1.4 MV V2 max: 202.2 cm/sec MV dec slope: 1076 cm/sec2 Ao V2 max: 110.8 cm/sec MV max P.4 mmHg Ao max P.9 mmHg MV V2 mean: 127.2 cm/sec Ao V2 mean: 84.4 cm/sec MV mean P.1 mmHg Ao mean P.2 mmHg MV V2 VTI: 67.8 cm Ao V2 VTI: 29.0 cm AV (velocity ratio): 0.78 LV V1 max: 94.4 cm/sec MR max jorge: 438.2 cm/sec PA V2 max: 83.0 cm/sec LV V1 max P.6 mmHg MR max P.8 mmHg PA V2 mean: 52.3 cm/sec LV V1 mean P.2 mmHg MR mean jorge: 336.4 cm/sec LV V1 mean: 68.9 cm/sec MR mean P.3 mmHg LV V1 VTI: 22.5 cm MR VTI: 152.4 cm TR max jorge: 308.1 cm/sec TR max P.0 mmHg ECHO/Echo Complete Interpretation Summary Borderline enlarged left ventricle. Left ventricular systolic function is normal. The estimated ejection fraction is 55 %. Post operative septal motion. The left atrium is mildly enlarged. Stable appearing bioprosthetic mitral valve apparatus. MIld (1+) transvalvular insufficiency of the mitral valve. Mild perivalvular insufficiency of the mitral valve. Mild tricuspid valve insufficiency. Trivial aortic valve insufficiency. Trivial pulmonic valve insufficiency. Mildly dilated aortic root. Right ventricular systolic pressure estimated to be 41 mmHg. Stage 2 diastolic dysfunction. Ordering Physician: Ramesh Bailey Referring Physician: BAM MORRISON Performed By: Nel Orozco RCS
== END | disposition home or self-care (01) ==
LOC: CVS 07:58
PROVIDERS: PCP Physician Assistant; Visit Provider Internal Medicine Cardiovascular Disease
DX: T82.03XA Leakage of heart valve prosthesis, initial encounter (principal); I48.92 Unspecified atrial flutter; I10 Essential (primary) hypertension; E78.5 Hyperlipidemia, unspecified; J90 Pleural effusion, not elsewhere classified; Z95.3 Presence of xenogenic heart valve
CPT/HCPCS: 93306; A4216

== ENCOUNTER → 2023-03-13 | Outpatient (CLI) | payer MEDICARE, OTHER, SELFPAY ==
--- NOTE | 2023-03-13 12:59 | ECHOD_ITS ---
Reason For Study: MITRAL VALVE REPLACEMENT Procedure This was a 2D Doppler, Color Flow transthoracic echocardiogram. Exam performed in department. Left Ventricle Normal LV size. Left ventricular systolic function is lower limits of normal. The estimated ejection fraction is 53 %. Stage 2 diastolic dysfunction. No regional wall motion abnormalities noted. Right Ventricle Normal RV size. Normal systolic function. Atria The left atrium is severely enlarged. Normal right atrium. Mitral Valve Mean transmitral valve gradient 6 mmHg. Mild paravalvular leak noted. Stable appearing bioprosthetic mitral valve apparatus. Tricuspid Valve Normal tricuspid valve. Mild (1+) tricuspid valve insufficiency. Pulmonary artery systolic pressure is 30 mmHg. Aortic Valve Trisinus/trileaflet aortic valve. Pulmonic Valve Normal pulmonic valve. Great Vessels Normal aortic root. The pulmonary artery is normal size. Normal inferior vena cava. Pericardium/Pleural No pericardial effusion. MMode/2D Measurements & Calculations LVIDd: 6.5 cm IVSd: 1.1 cm LVOT diam: 2.0 cm LVIDs: 4.0 cm LVPWd: 1.0 cm LVOT area: 3.3 cm2 RVDd: 3.9 cm FS: 37.8 % Ao root diam: 4.2 cm LAV(MOD-bp): 128.3 ml LVAd ap4: 45.6 cm2 LAV(MOD-bp) Indexed: 64.4 ml/m2 LVLd ap4: 9.6 cm LAV(MOD-sp2): 110.1 ml EDV(MOD-sp4): 174.6 ml LAV(MOD-sp4): 125.9 ml EDV(sp4-el): 184.8 ml LVAs ap4: 27.4 cm2 LVLs ap4: 8.2 cm ESV(MOD-sp4): 72.2 ml ESV(sp4-el): 77.5 ml EF(MOD-sp4): 58.7 % EF(sp4-el): 58.0 % LVAd ap2: 50.6 cm2 SV(MOD-sp4): 102.4 ml SV(MOD-sp2): 122.7 ml LVLd ap2: 10.1 cm EDV(MOD-sp2): 204.4 ml EDV(sp2-el): 214.6 ml LVAs ap2: 30.2 cm2 LVLs ap2: 9.2 cm ESV(MOD-sp2): 81.7 ml ESV(sp2-el): 84.1 ml EF(MOD-sp2): 60.0 % SV(sp4-el): 107.2 ml LA dimension(2D): 5.5 cm LA A4 area: 34.4 cm2 RA A4 area: 13.3 cm2 TAPSE: 1.9 cm Time Measurements MV dec time: 0.38 sec Doppler Measurements & Calculations MV E max jorge: 177.0 cm/sec Lat Peak E' Jorge: 11.6 cm/sec Med Peak E' Jorge: 5.4 cm/sec MV A max jorge: 146.6 cm/sec E/E' lat: 15.3 E/E' med: 32.8 MV E/A: 1.2 MV V2 max: 200.8 cm/sec Ao V2 max: 111.0 cm/sec MV max P.1 mmHg MV dec slope: 468.7 cm/sec2 Ao max P.9 mmHg MV V2 mean: 116.6 cm/sec Ao V2 mean: 85.6 cm/sec MV mean P.2 mmHg Ao mean P.1 mmHg MV V2 VTI: 71.2 cm Ao V2 VTI: 24.2 cm AV (velocity ratio): 0.92 MVA(VTI): 1.0 cm2 DEMARCO(I,D): 3.1 cm2 DEMARCO(V,D): 2.5 cm2 LV V1 max: 84.7 cm/sec SV(LVOT): 73.8 ml PA V2 max: 93.3 cm/sec LV V1 max P.9 mmHg PA max PG (full): 2.8 mmHg LV V1 mean P.2 mmHg LV V1 mean: 72.6 cm/sec LV V1 VTI: 22.4 cm TR max jorge: 250.3 cm/sec TR max P.1 mmHg ECHO/Echo Complete Interpretation Summary Normal LV size. Left ventricular systolic function is lower limits of normal. Stage 2 diastolic dysfunction. The estimated ejection fraction is 53 %. Mild paravalvular leak noted Mean transmitral valve gradient 6 mmHg. Compared to the previous echocardiogram the above is essentially unchanged. Ordering Physician: Haritha Gurrola Referring Physician: Haritha Gurrola Performed By: Judy Flood RDCS
--- NOTE | 2023-03-13 12:59 | CDU_ITS ---
Reason For Study: Rt Carotid Bruit Rt. Velocities/BP Lt. Velocities/BP Prox CCA 78.7/12.7 cm/sec. Dist CCA 53.7/13.1 cm/sec. Mid CCA 61.0/11.0 cm/sec. Mid CCA 60.3/12.0 cm/sec. Dist CCA 59.1/11.0 cm/sec. Prox CCA 69.1/10.9 cm/sec. Prox ICA 48.7/12.8 cm/sec. Dist ICA 78.4/20.3 cm/sec. Mid ICA 58.2/21.4 cm/sec. Mid ICA 57.5/17.3 cm/sec. Dist ICA 61.0/23.2 cm/sec. Prox ICA 54.8/18.6 cm/sec. Rt. ICA/CCA = 1.0. Prox ECA 48.7/7.2 cm/sec. Prox ECA 48.7/12.8 cm/sec. Lt. Vert. 37.4/13.9 cm/sec. Rt. Vert. 29.3/11.0 cm/sec. Right Extracranial There is intimal thickening but no significant atherosclerotic plaque noted in the right common carotid artery. There is homogeneous, smooth atherosclerotic plaque noted in the right internal carotid artery. There is heterogeneous, irregular atherosclerotic plaque noted in the right external carotid artery. Antegrade flow is noted in the right vertebral artery. Left Extracranial There is homogeneous, smooth atherosclerotic plaque noted in the left common carotid artery. There is heterogeneous, irregular atherosclerotic plaque noted in the left internal carotid artery. The left internal carotid artery is very tortuous. There is heterogeneous, irregular atherosclerotic plaque noted in the left external carotid artery. Antegrade flow is noted in the left vertebral artery. Procedure Carotid Duplex 20441. This is a Carotid Duplex examination using B-mode, color flow and specral Doppler. The exam was diagnostic. Exam performed in department. VL/Carotid Duplex Ultrasound Interpretation Summary Mild (<50%) stenosis right extracranial internal carotid. Mild (<50%) stenosis left extracranial internal carotid. Patent and antegrade vertebrals bilaterally. Ordering Physician: Rico Das Referring Physician: Barney Tan Performed By: Atif Jimenez RVT
== END | disposition home or self-care (01) ==
PROVIDERS: PCP Physician Assistant; Referring Provider Physician Assistant Medical; Visit Provider Physician Assistant Medical
DX: Z95.3 Presence of xenogenic heart valve (principal); R09.89 Other specified symptoms and signs involving the circulatory and respiratory systems
CPT/HCPCS: 93306; 93880